=== PATIENT | male | born 1995 | race Caucasian/White ===

== ENCOUNTER 2017-12-11 10:27 | Emergency (ER) | payer OTHER ==
[~2017-12-11] VITALS: Ht 177.8 cm; Wt 83.5 kg
--- NOTE | 2017-12-11 10:51 | PHYS DOC ---
Adult General Chief Complaint Chief Complaint: ANKLE PROBLEM HPI HPI 22-year-old male presents with left ankle pain. The patient was playing basketball last night he came down and rolled his ankle medially. He states hearing several pops and had immediate pain. He has been able to walk on it, but there are times when the pain increases and he cannot bear weight. It is swollen the most over the lateral malleolus. He denies any other injuries or concerns. Review of Systems Review of Systems Constitutional: Denies fever or chills [] Eyes: Denies change in visual acuity, redness, or eye pain [] HENT: Denies nasal congestion or sore throat [] Respiratory: Denies cough or shortness of breath [] Cardiovascular: No additional information not addressed in HPI [] GI: Denies abdominal pain, nausea, vomiting, bloody stools or diarrhea [] : Denies dysuria or hematuria [] Musculoskeletal: Left ankle pain[] Integument: Denies rash or skin lesions [] Neurologic: Denies headache, focal weakness or sensory changes [] Endocrine: Denies polyuria or polydipsia [] All other systems were reviewed and found to be within normal limits, except as documented in this note. Allergies Allergies Allergies Coded Allergies Type Severity Reaction Last Updated Verified No Known Drug Allergies 12/11/17 No Physical Exam Physical Exam Constitutional: Well developed, well nourished, no acute distress, non-toxic appearance. [] HENT: Normocephalic, atraumatic, bilateral external ears normal, oropharynx moist, no oral exudates, nose normal. [] Eyes: PERRLA, EOMI, conjunctiva normal, no discharge. [] Neck: Normal range of motion, no tenderness, supple, no stridor. [] Cardiovascular:Heart rate regular rhythm, no murmur [] Lungs & Thorax: Bilateral breath sounds clear to auscultation [] Abdomen: Bowel sounds normal, soft, no tenderness, no masses, no pulsatile masses. [] Skin: Warm, dry, no erythema, no rash. [] Back: No tenderness, no CVA tenderness. [] Extremities: Left ankle moderate swelling over the lateral malleolus. No obvious bruising.[] Neurologic: Alert and oriented X 3, normal motor function, normal sensory function, no focal deficits noted. [] Psychologic: Affect normal, judgement normal, mood normal. [] EKG EKG [] Radiology/Procedures Radiology/Procedures Left ankle 3 views. HISTORY: Left ankle pain, twisted ankle one day ago 3 views were taken of the left ankle. There is soft tissue swelling mainly laterally. There is a sesamoid inferior to the lateral malleolus. There is no acute fracture. IMPRESSION: 1. Soft tissue swelling. 2. No acute fracture. Electronically signed by: Harrison Bender MD (12/11/2017 11:05 AM) [facility][] Course & Med Decision Making Course & Med Decision Making Pertinent Labs and Imaging studies reviewed. (See chart for details) The patient does not have any acute fracture. There is a sesamoid in the area his pain, but on imaging is a nice rounded shape. To place the patient in air splint for comfort and stability. He can follow-up with his PCP or orthopedics at his choice.[] Dragon Disclaimer Dragon Disclaimer This electronic medical record was generated, in whole or in part, using a voice recognition dictation system. Departure Departure: Referrals: JAGDEEP ALMANZAR MD (PCP) TAHIR HUTCHINSON DO December 11, 2017 10:51
--- NOTE | 2017-12-11 11:08 | RAD ---
Left ankle 3 views. HISTORY: Left ankle pain, twisted ankle one day ago 3 views were taken of the left ankle. There is soft tissue swelling mainly laterally. There is a sesamoid inferior to the lateral malleolus. There is no acute fracture. IMPRESSION: 1. Soft tissue swelling. 2. No acute fracture. Electronically signed by: Harrison Bender MD (12/11/2017 11:05 AM) [facility]
[2017-12-11 11:24] VITALS: BP 125/96
== END 2017-12-11 11:29 | disposition home or self-care (01) ==
LOC: ER 10:27
DX: S99.912A Unspecified injury of left ankle, initial encounter (principal); X50.0XXA Overexertion from strenuous movement or load, initial encounter; Y93.67 Activity, basketball; Y99.8 Other external cause status; Y92.89 Other specified places as the place of occurrence of the external cause
CPT/HCPCS: 29515; 73610; 99284